=== PATIENT | female | born 1940 | race African-American/Black ===

== ENCOUNTER 2024-05-13 18:05 | Inpatient (IN) | payer OTHER ==
[~2024-05-13] VITALS: Ht 160 cm; Wt 64.4 kg
--- NOTE | 2024-05-13 18:31 | ECG ---
[facility] Test Date: 2024-05-13 Test Time: 18:22:00 Pat Name: SURAJ TRIVEDI Department: ER Room: 0247T Gender: F Reject Opener: ER : 1940 Requested By: MISBAH WHITTAKER Order Number: [id number] Reading MD: Basil Smith Measurements Intervals [place] Rate: 69 P: 91 SC: 193 QRS: 111 QRSD: 94 T: 63 QT: 401 QTc: 430 Interpretive Statements Sinus rhythm Ventricular trigeminy Anteroseptal infarct, age indeterminate Electronically Signed On 05-15-2024 22:10:27 PDT by Basil Smith Please click the below link to view image of tracing.
--- NOTE | 2024-05-13 19:17 | DVH ---
EXAM: CT HEAD WITHOUT CONTRAST HISTORY: syncope COMPARISON: None TECHNIQUE: Axial images were obtained and reformatted in coronal and sagittal planes. All CT scans at this medical facility are performed using dose modulation techniques as appropriate t o a performed exam including the following: Automated exposure control was utilized; adjustment of th e MA and/or KV according to patient size; and use of iterative reconstruction technique. CT Dose: CTDI volume is 52 mGy. Dose-length product is 840 mGy*cm FINDINGS: Supratentorial Region: No evidence for large acute territorial ischemia. No intracranial hemorrhage is noted. Posterior Fossa: No acute abnormality. Brainstem: Unremarkable. Sellar/Suprasellar Region: Unremarkable. Ventricles, Cisterns, Sulci: Age-appropriate. Orbits: Unremarkable. Paranasal Sinuses: Unremarkable. Mastoid Air Cells: Unremarkable. Vasculature: Unremarkable. Bones/Soft Tissues: No acute abnormality. Other: None. IMPRESSION: 1. No acute intracranial process.
[2024-05-13 19:19] LABS: Basophils # (auto) 0 10 ^3/uL (0-0.2); Basophils % (auto) 0.7 % (0.0-2.0); Eosinophils # (auto) 0.2 10 ^3/uL (0-0.8); Eosinophils % (auto) 4.2 % (0.0-7.0); Hematocrit 37.8 % (36.0-46.0); Hemoglobin 12.5 g/dL (12.2-16.2); Lymphocytes # (auto) 1.2 10 ^3/uL (0.4-5.4); Lymphocytes % (auto) 32.6 % (10.0-50.0); Mean Corpuscular Hemoglobin 26.3 pg (28.0-32.0); Mean Corpuscular Volume 79.9 fL (80.0-100.0); Monocytes # (auto) 0.6 10 ^3/uL (0-1.3); Monocytes % (auto) 16.5 % (0.0-12.0); Neutrophils # (auto) 1.8 10 ^3/uL (1.6-8.6); Nucleated Red Blood Cells % 0.1 %; Platelet Count (auto) 318 10^3/uL (140-450); Red Blood Cells 4.73 10^6/uL (4.0-5.20); Red Cell Distribution Width 14.9 % (11.8-14.3); White Blood Cell 3.8 10^3/uL (4.4-10.8)
--- NOTE | 2024-05-13 19:26 | DVH ---
EXAM: XR Chest, 1 View CLINICAL INDICATION: syncope TECHNIQUE: Frontal view of the chest. COMPARISON: None FINDINGS: LUNGS AND PLEURAL SPACES: Unremarkable. No consolidation. No pneumothorax. HEART: Unremarkable. No cardiomegaly. MEDIASTINUM: Unremarkable. Normal mediastinal contour. BONES/JOINTS: Unremarkable. No acute fracture. OTHER FINDINGS: . None. IMPRESSION: No acute cardiopulmonary process.
[2024-05-13 19:28] LABS: Chloride 99 mmol/L (98-107); Potassium 4.5 mmol/L (3.5-5.1)
[2024-05-13 19:29] LABS: Anion Gap 7 (5-15); Carbon Dioxide 29 mmol/L (20-31)
[2024-05-13 19:34] LABS: BUN/Creatinine Ratio 23.2 (10.0-20.0)
[2024-05-13 19:37] LABS: Blood Urea Nitrogen 29 mg/dL (9-23); Calcium 10.6 mg/dL (8.7-10.4); Glucose 107 mg/dL (74-106); Sodium 135 mmol/L (136-145)
--- NOTE | 2024-05-13 20:21 | ED.PDOC ---
History of Present Illness HPI Comments 83 y/o F, with a Hx of irregular heartbeat s/p cardiac surgery and HTN, presents s/p witnessed syncope with head injury, today. Patient is reported to have had a sudden syncopal episode with positive fall and head injury against a wall, while standing next to her in ED hallway, earlier, this evening. At time of assessment, patient comments on standing in the same spot for a while and being somewhat fatigue. Patient admits to having a syncopal episode in the past several years ago but never being told of underlying cause then. She denies any headaches, visions or speech changes, weakness, dizziness, additional injuries, or other associated symptoms or modifiers at this time. 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 History: Other (prolapsed uterus ) All Other Systems: Reviewed and Negative (Comprehensive systems review obtained and negative except for what is stated in the HPI.) Physical Exam General Appearance: No Apparent Distress, Normal HEENT: Normal ENT Inspection, Pharynx Normal, TMs Normal Neck: Full Range of Motion, Non-Tender, Normal, Normal Inspection Respiratory: Chest Non-Tender, Lungs Clear, No Accessory Muscle Use, No Respiratory Distress, Normal Breath Sounds Cardiovascular: No Edema, No JVD, No Murmur, No Gallop, Normal Peripheral Puls es, Regular Rate/Rhythm Breast Exam: Deferred Gastrointestinal: No Organomegaly, Non Tender, No Pulsatile Mass, Normal Bowel Sounds, Soft Genitalia: Deferred Pelvic: Deferred Rectal: Deferred Extremities: No calf tenderness, Normal capillary refill, Normal inspection, Normal range of motion, Non-tender, No pedal edema Musculoskeletal : Apperance: Normal 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 Was a procedure done?: No EKG EKG : Pulse Rate (adult): 69 [place]: Normal Cardiac Rhythm: NSR, PVC's (frequent ) Block: None Hypertrophy: None ST: Normal Differential Dx Considerations may include: dehydrations, electrolyte imbalance, viral syndrome, closed head injury, vasovagal response, arrhythmias, VBI, hypoglycemia, seizure X-Ray, Labs, Meds, VS Vital Signs Date Time Temp Pulse Resp B/P (MAP) Pulse Ox O2 Delivery O2 Flow Rate FiO2 05/13/24 23:24 97.8 69 18 149/60 (89) 95 97.8 05/13/24 20:21 69 05/13/24 18:22 69 05/13/24 18:20 97.5 77 16 168/64 (98) 98 97.5 Lab Test 05/13/24 22:12 05/13/24 19:43 05/13/24 18:46 05/13/24 18:18 Range/Units Troponin I High Sensitivity 8 9 8 </=34 ng/L White Blood Count 3.8 L 4.4-10.8 10^3/uL Red Blood Count 4.73 4.0-5.20 10^6/uL Hemoglobin 12.5 12.2-16.2 g/dL Hematocrit 37.8 36.0-46.0 % Mean Corpuscular Volume 79.9 L 80.0-100.0 fL Mean Corpuscular Hemoglobin 26.3 L 28.0-32.0 pg Mean Corpuscular Hemoglobin Concent 33.0 32.0-36.0 g/dL Red Cell Distribution Width 14.9 H 11.8-14.3 % Platelet Count 318 140-450 10^3/uL Mean Platelet Volume 8.3 6.9-10.8 fL Neutrophils (%) (Auto) 46.0 37.0-80.0 % Lymphocytes (%) (Auto) 32.6 10.0-50.0 % Monocytes (%) (Auto) 16.5 H 0.0-12.0 % Eosinophils (%) (Auto) 4.2 0.0-7.0 % Basophils (%) (Auto) 0.7 0.0-2.0 % Neutrophils # (Auto) 1.8 1.6-8.6 10 ^3/uL Lymphocytes # (Auto) 1.2 0.4-5.4 10 ^3/uL Monocytes # (Auto) 0.6 0-1.3 10 ^3/uL Eosinophils # (Auto) 0.2 0-0.8 10 ^3/uL Basophils # (Auto) 0 0-0.2 10 ^3/uL Nucleated Red Blood Cells 0.1 % Sodium Level 135 L 136-145 mmol/L Potassium Level 4.5 3.5-5.1 mmol/L Chloride Level 99 98-107 mmol/L Carbon Dioxide Level 29 20-31 mmol/L Anion Gap 7 5-15 Blood Urea Nitrogen 29 H 9-23 mg/dL Creatinine 1.25 H 0.550-1.02 mg/dL Glomerular Filtration Rate Calc 42 >90 mL/min BUN/Creatinine Ratio 23.2 H 10.0-20.0 Serum Glucose 107 H 74-106 mg/dL Calcium Level 10.6 H 8.7-10.4 mg/dL Urine Color Yellow Yellow Urine Clarity Clear Clear Urine pH 6.5 5.0-9.0 Urine Specific [place] 1.014 1.001-1.035 Urine Protein Negative Negative Urine Ketones Negative Negative Urine Blood Negative Negative /uL Urine Nitrite Negative Negative Urine Bilirubin Negative Negative Urine Urobilinogen Normal Negative mg/dL Urine Leukocyte Esterase 2+ Negative /uL Urine RBC 3 0 - 4 /hpf Urine Microscopic WBC 4 0-5 /HPF Urine Squamous Epithelial Cells None seen <5 /hpf Urine Bacteria None seen None Seen /hpf Urine Hyaline Casts Few 0 - 2 /lpf Urine Glucose Normal Normal mg/dL Test 05/13/24 18:16 Range/Units POC Glucose 124 H 70-106 mg/dl [place] [address] Ph: [phone] DIAGNOSTIC IMAGING Diagnostic Imaging Report : [id number] Signed PATIENT: SURAJ TRIVEDI ACCT: [id number] UNIT: [id number] : 1940 LOC: ER ROOM / BED: / AGE / SEX: 83 / F ADM STATUS: REG ER SERVICE 1830 ORDERING PHYSICIAN: MISBAH WHITTAKER MD PROCEDURE(s): HWOCT - HEAD WITHOUT CONTRAST REASON: syncope ORDER NUMBER(s): [id number], ACCESSION NUMBER(s): [id number] EXAM: CT HEAD WITHOUT CONTRAST HISTORY: syncope COMPARISON: None TECHNIQUE: Axial images were obtained and reformatted in coronal and sagittal planes. All CT scans at this medical facility are performed using dose modulation techniques as appropriate to a performed exam including the following: Automated exposure control was utilized; adjustment of the MA and/or KV according to patient size; and use of iterative reconstruction technique. CT Dose: CTDI volume is 52 mGy. Dose-length product is 840 mGy*cm FINDINGS: Supratentorial Region: No evidence for large acute territorial ischemia. No intracranial hemorrhage is noted. Posterior Fossa: No acute abnormality. Brainstem: Unremarkable. Sellar/Suprasellar Region: Unremarkable. Ventricles, Cisterns, Sulci: Age-appropriate. Orbits: Unremarkable. Paranasal Sinuses: Unremarkable. Mastoid Air Cells: Unremarkable. Vasculature: Unremarkable. Bones/Soft Tissues: No acute abnormality. Other: None. IMPRESSION: 1. No acute intracranial process. ATED BY: KYMBERLY JAMES MD DICTATED DATE/TIME: 05/13/241914 SIGNED BY: KYMBERLY JAMES MD SIGNED DATE/TIME: 05/13/241914 CC: [place] [address] Ph: [phone] DIAGNOSTIC IMAGING Diagnostic Imaging Report : [id number] Signed PATIENT: SURAJ TRIVEDI ACCT: [id number] UNIT: [id number] : 1940 LOC: ER ROOM / BED: / AGE / SEX: 83 / F ADM STATUS: REG ER SERVICE 29 ORDERING PHYSICIAN: MISBAH WHITTAKER MD PROCEDURE(s): CXRP - CHEST PORTABLE REASON: syncope ORDER NUMBER(s): [id number], ACCESSION NUMBER(s): [id number] EXAM: XR Chest, 1 View CLINICAL INDICATION: syncope TECHNIQUE: Frontal view of the chest. COMPARISON: None FINDINGS: LUNGS AND PLEURAL SPACES: Unremarkable. No consolidation. No pneumothorax. HEART: Unremarkable. No cardiomegaly. MEDIASTINUM: Unremarkable. Normal mediastinal contour. BONES/JOINTS: Unremarkable. No acute fracture. OTHER FINDINGS: . None. IMPRESSION: No acute cardiopulmonary process. ATED BY: MARNIE WISE MD DICTATED DATE/TIME: 05/13/241922 SIGNED BY: MARNIE WISE MD SIGNED DATE/TIME: 05/13/241922 CC: Time of 1ST Reevaluation: 19:00 Reevaluation 1ST: Unchanged Time of 2ND Reevaluation: 20:32 Reevaluation 2ND: Improved Patient Education/Counseling: Diagnosis, Treatment, Prognosis, Need For Follow Up Family Education/Counseling: Diagnosis, Treatment, Prognosis, Need For Follow Up, No Family Present Additional Information Previous medical encounters reviewed: n/a The following tests were ordered, and results were reviewed by me: troponin, BMP, CBC, EKG, CT head w/o contrast, CXR Additional Information was gathered from interviewing the following independent historians: I reviewed and agreed with the following test results read by other providers: CXR I discussed treatment and results with medical personnel and: Patient, pt had a witnessed episode of syncope, without injuries. her EKGs shows multiple PVCs. arrythmias were not captured, otherwise. her locust syncope rule silva her as "not low risk" she will need admission for further evaluation. pt also has an incidental finding of uti i consulted with Dr Yousif at [facility] who will look for a bed at [facility], but since pt's is being admitted, she will decline transfer #[id number] Departure 1 Departure Time of Disposition: 20:37 Impression: Primary Impression: PVC (premature ventricular contraction) Additional Impressions: Syncopal episodes Qualified Codes: I45.9 - Conduction disorder, unspecified UTI (urinary tract infection) Qualified Codes: N30.00 - Acute cystitis without hematuria Disposition: ADMITTED INPATIENT Admit to: Tele Condition: Serious Discharged With: Self, Relative Critical Care Note Critical Care Time?: Yes (55 min-critical care time only) Critical care comment: Due to concerns for patients condition deteriorating, the care required my highest level of attention and readiness to intervene. I assessed the patient, reviewed the medical records, ordered the appropriate tests and treatments, then reassessed for results and responsiveness. I communicated with medical personnel and consultants and formulated a plan of care. Total critical care time excludes any procedures Stability Stability form required: No Heart Score Heart Score: Heart Score Response (Comments) Value History Moderate Suspicious 1 EKG Normal 0 Age >65 2 Risk Factors 1 or 2 risk factors 1 Troponin Normal limit 0 Total 4 I personally scribed for MISBAH WHITTAKER MD ([email or web address]) on 05/13/24 at 20:21. Electronically submitted by Ricardo Rand [email or web address]). MISBAH WHITTAKER MD May 13, 2024 20:21
[2024-05-13 22:25] LABS: Urine Bacteria None Seen /hpf (None Seen)
[2024-05-13 22:34] LABS: Urine Blood Negative /uL (Negative); Urine Clarity Clear (Clear); Urine Color Yellow (Yellow); Urine Hyaline Cast FEW /lpf (0 - 2); Urine Protein, UAD Negative (Negative); Urine Specific Gravity 1.014 (1.001-1.035); Urine Squamous Epithelial Cell None Seen /hpf (<5); Urine Urobilinogen Normal (Negative); Urine WBC 4 /HPF (0-5); Urine pH 6.5 (5.0-9.0)
[2024-05-14] VITALS (11 sets, daily range): BP systolic 113–161; BP diastolic 54–72; PULSE 58–77; RESP 9–18; TEMP 97.7–98; O2SAT 95–98
[2024-05-14] MEDS ORDERED: CEPHALEXIN 250 MG CAP PO ONE
[2024-05-14] MEDS ORDERED: MORPHINE SULFATE INJ 2 MG/ml SYRG IV PRN (01:15)
[2024-05-14] MEDS ORDERED: ONDANSETRON HCL 4 MG/2 ML VIAL IV PRN (01:15)
[2024-05-14] MEDS ORDERED: NITROGLYCERIN 0.4 MG SL TAB SL PRN (01:15)
--- NOTE | 2024-05-14 01:19 | DVHHP2 ---
History of Present Illness Reason for Visit: Syncope History of Present Illness 83-year-old female presents for evaluation of syncopal episode. Patient was waiting the site her who was being worked up before admission when she had a sudden syncopal episode. She reports loss of consciousness. No head trauma. Currently denies dizziness, shortness for breath or chest pain. No other acute symptoms are reported. Past Medical History Hypertension Past Surgical History ? Cardiac surgery Family History Noncontributory Smoke: No ALCOHOL: none Drugs: None Lives: with Family Review of Systems Review of Systems Review of systems are currently negative otherwise addressed in HPI. Allergies: Coded Allergies: Cephalexin (Verified Allergy, Mild, hives, 05/13/24) Medications Current Medications Medications Dose Ordered Sig/Prachi Route Start Time Stop Time Status Last Admin Dose Admin Nitrofurantoin Macrocrystals 100 mg BID PO 05/14/24 10:00 UNV Amlodipine Besylate 5 mg DAILY PO 05/14/24 10:00 UNV Lisinopril 20 mg DAILY PO 05/14/24 10:00 UNV Hydrochlorothiazide 12.5 mg DAILY PO 05/14/24 10:00 UNV Ondansetron HCl 4 mg Q4HP PRN IV 05/14/24 01:15 UNV Enoxaparin Sodium 30 mg DAILY SC 05/14/24 10:00 UNV Acetaminophen 650 mg Q6HP PRN PO 05/14/24 01:15 UNV Morphine Sulfate 2 mg Q30M PRN IV 05/14/24 01:15 UNV Exam Vital Signs Vital Signs Date Time Temp Pulse Resp B/P (MAP) Pulse Ox O2 Delivery O2 Flow Rate FiO2 05/14/24 00:57 98.1 71 11 174/74 (107) 98 98.1 Exam Gen: 83-year-old female in mild distress Skin: Warm, dry, normal color and texture, no rash. HEENT: Normocephalic atraumatic, mucous membranes moist and pink. Neck: Cervical and supraclavicular nodes normal without enlargement, trachea is midline, thyroid gland is normal without masses. Pulmonary: Clear to auscultation and percussion bilaterally. Cardiac: Regular rate and rhythm. No murmur Abdomen: Soft, nontender, nondistended, bowel sounds present all 4 quadrants, no guarding, no rigidity, no organomegaly. Extremities: No cyanosis, clubbing, no edema Neuro: Cranial nerves II through XII grossly intact, normal affect and speech, no focal motor deficits. Labs/Xrays ORDERING PHYSICIAN: MISBAH WHITTAKER MD PROCEDURE(s): CXRP - CHEST PORTABLE REASON: syncope ORDER NUMBER(s): [id number], ACCESSION NUMBER(s): [id number] EXAM: XR Chest, 1 View CLINICAL INDICATION: syncope TECHNIQUE: Frontal view of the chest. COMPARISON: None FINDINGS: LUNGS AND PLEURAL SPACES: Unremarkable. No consolidation. No pneumothorax. HEART: Unremarkable. No cardiomegaly. MEDIASTINUM: Unremarkable. Normal mediastinal contour. BONES/JOINTS: Unremarkable. No acute fracture. OTHER FINDINGS: . None. IMPRESSION: No acute cardiopulmonary process. RING PHYSICIAN: MISBAH WHITTAKER MD PROCEDURE(s): HWOCT - HEAD WITHOUT CONTRAST REASON: syncope ORDER NUMBER(s): [id number], ACCESSION NUMBER(s): [id number] EXAM: CT HEAD WITHOUT CONTRAST HISTORY: syncope COMPARISON: None TECHNIQUE: Axial images were obtained and reformatted in coronal and sagittal planes. All CT scans at this medical facility are performed using dose modulation te chniques as appropriate to a performed exam including the following: Automated exposure control was utilized; adjustment of the MA and/or KV according to patient size; and use of iterative reconstruction technique. CT Dose: CTDI volume is 52 mGy. Dose-length product is 840 mGy*cm FINDINGS: Supratentorial Region: No evidence for large acute territorial ischemia. No intracranial hemorrhage is noted. Posterior Fossa: No acute abnormality. Brainstem: Unremarkable. Sellar/Suprasellar Region: Unremarkable. Ventricles, Cisterns, Sulci: Age-appropriate. Orbits: Unremarkable. Paranasal Sinuses: Unremarkable. Mastoid Air Cells: Unremarkable. Vasculature: Unremarkable. Bones/Soft Tissues: No acute abnormality. Other: None. IMPRESSION: 1. No acute intracranial process. Labs Test 05/13/24 22:12 05/13/24 18:46 05/13/24 18:18 05/13/24 18:16 Range/Units Magnesium Level 2.1 1.6-2.6 mg/dL Troponin I High Sensitivity 8 </=34 ng/L White Blood Count 3.8 L 4.4-10.8 10^3/uL Red Blood Count 4.73 4.0-5.20 10^6/uL Hemoglobin 12.5 12.2-16.2 g/dL Hematocrit 37.8 36.0-46.0 % Mean Corpuscular Volume 79.9 L 80.0-100.0 fL Mean Corpuscular Hemoglobin 26.3 L 28.0-32.0 pg Mean Corpuscular Hemoglobin Concent 33.0 32.0-36.0 g/dL Red Cell Distribution Width 14.9 H 11.8-14.3 % Platelet Count 318 140-450 10^3/uL Mean Platelet Volume 8.3 6.9-10.8 fL Neutrophils (%) (Auto) 46.0 37.0-80.0 % Lymphocytes (%) (Auto) 32.6 10.0-50.0 % Monocytes (%) (Auto) 16.5 H 0.0-12.0 % Eosinophils (%) (Auto) 4.2 0.0-7.0 % Basophils (%) (Auto) 0.7 0.0-2.0 % Neutrophils # (Auto) 1.8 1.6-8.6 10 ^3/uL Lymphocytes # (Auto) 1.2 0.4-5.4 10 ^3/uL Monocytes # (Auto) 0.6 0-1.3 10 ^3/uL Eosinophils # (Auto) 0.2 0-0.8 10 ^3/uL Basophils # (Auto) 0 0-0.2 10 ^3/uL Nucleated Red Blood Cells 0.1 % Sodium Level 135 L 136-145 mmol/L Potassium Level 4.5 3.5-5.1 mmol/L Chloride Level 99 98-107 mmol/L Carbon Dioxide Level 29 20-31 mmol/L Anion Gap 7 5-15 Blood Urea Nitrogen 29 H 9-23 mg/dL Creatinine 1.25 H 0.550-1.02 mg/dL Glomerular Filtration Rate Calc 42 >90 mL/min BUN/Creatinine Ratio 23.2 H 10.0-20.0 Serum Glucose 107 H 74-106 mg/dL Calcium Level 10.6 H 8.7-10.4 mg/dL Urine Color Yellow Yellow Urine Clarity Clear Clear Urine pH 6.5 5.0-9.0 Urine Specific [place] 1.014 1.001-1.035 Urine Protein Negative Negative Urine Ketones Negative Negative Urine Blood Negative Negative /uL Urine Nitrite Negative Negative Urine Bilirubin Negative Negative Urine Urobilinogen Normal Negative mg/dL Urine Leukocyte Esterase 2+ Negative /uL Urine RBC 3 0 - 4 /hpf Urine Microscopic WBC 4 0-5 /HPF Urine Squamous Epithelial Cells None seen <5 /hpf Urine Bacteria None seen None Seen /hpf Urine Hyaline Casts Few 0 - 2 /lpf Urine Glucose Normal Normal mg/dL POC Glucose 124 H 70-106 mg/dl Assessment/Plan Assessment/Plan Assessment Syncope Urinary tract infection Chronic kidney disease Plan Admit the patient to telemetry to the hospitalist Cardiology consultation Echocardiogram/carotid ultrasound pending Resume home medications Continue treatment per orders. Plan discussed with: Patient My Orders Orders - CHUCK ALLISON AGACNP Procedure Category Date Status Time Nitrofurantoin PHA 05/14/24 Logged Capsule (Macrobid) 10:00 Amlodipine Tablet PHA 05/14/24 Logged (Norvasc Tablet) 10:00 Lisinopril Tablet PHA 05/14/24 Logged (Zestril Tablet) 10:00 Hydrochlorothiazide PHA 05/14/24 Logged Tablet (Hydrochlorot 10:00 * Cardiology Consult CONS 05/14/24 Transmitted 01:10 Basic Metabolic Panel LAB 05/15/24 Verified 04:00 Admit ADMIT 05/14/24 Transmitted 01:10 Renal DIET 05/14/24 Transmitted Standard(2gna,3gk,Lopho) Breakfast Ondansetron Hcl PHA 05/14/24 Logged (Zofran) 01:15 Cardiac DIET 05/14/24 Transmitted Diet-2gna,Lofat,Lochol Breakfast Echo 2d Mode Cardiac US 05/14/24 Logged DOP 01:10 Carotid Duplx W Color US 05/14/24 Logged DOP 01:10 Condition: Fair MARK 05/14/24 Transmitted 01:10 Enoxaparin Sodium PHA 05/14/24 Logged (Lovenox) 10:00 Acetaminophen Tablet PHA 05/14/24 Transmitted (Tylenol Tablet) 01:15 Bedrest With Bathroom MARK 05/14/24 Transmitted Privileg 01:10 Nitroglycerin PHA 05/14/24 Transmitted Sublingual (Ntrostat 01:15 Morphine Sulfate PHA 05/14/24 Transmitted Injection 01:15 Stat Ekg For Chest MARK 05/14/24 Transmitted Pain 01:10 Notify Md Of Changes [facility] 05/14/24 Transmitted From Base 01:10 [place] [employer]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
[2024-05-14] MEDS: ACETAMINOPHEN 325 MG TAB PO PRN (02:10)
[2024-05-14] MEDS: NITROFURANTOIN 100 mg CAP PO SCH (03:33)
--- NOTE | 2024-05-14 08:40 | DVH ---
Carotid Duplex Date: 05/14/2024 07:08 AM Clinical History: syncope Comparison: None Technique: Duplex Doppler evaluation of the extracranial carotid and vertebral arteries including color Doppler and spectral/pulsed waveform analysis was performed. Findings: Greater than 50% stenosis involving the left ICA with ICA velocity measuring 131 centimeters/second a nd ICA/CCA ratio measuring 2.9.. Bilateral vertebral artery flow. Moderate atherosclerosis. IMPRESSION: No hemodynamically significant stenosis noted in the right carotid system. Greater than 50% stenosis involving the left ICA. Reference: Radiology 2003; 229:340-346
--- NOTE | 2024-05-14 09:17 | DVHINCON2 ---
Date Seen: May 14, 2024 Referring Physician DELMAR Tenorio Reason for Consultation Syncope History of Present Illness This is a pleasant 83-year-old female who presented to the emergency room with a chief complaint of syncopal event. The patient reports she brought in her to the ER for evaluation and while standing in the ED hallway she experienced a syncopal event for an unknown amount of time. Endorses some d izziness earlier during the day. Denies visual disturbance, headache, chest pain, SOB, or palpitations. Blood glucose level was found at 124 ng/dL, SBP 160s mmHg, and a HR in the 70s bpm. She underwent a 12 lead electrocardiogram revealing a sinus rhythm with ventricular trigeminy and no evidence of ischemia. Serial troponin levels are negative. Significant medical history includes possible history of atrial fibrillation with possible cardiac ablation in 2019 (off AC therapy), osteoporosis, hypertension, GERD, and prolapsed bladder with pessary. Past Medical History Past medical history reviewed. No other significant than mentioned above. Past Surgical History Possible cardiac ablation, 2019 Cataracts BTL Right lumpectomy Family History Family history reviewed. Social History Denies the use of illicit drugs, alcohol, or tobacco use. Allergies: Coded Allergies: Cephalexin (Verified Allergy, Mild, hives, 05/13/24) Home Meds Home medications reviewed. Current Medications Current Medications Medications (Trade) Dose Ordered Sig/Prachi Route PRN Reason Start Time Stop Time Status Last Admin Nitrofurantoin Macrocrystals (Macrobid) 100 mg BID PO 05/14/24 01:30 05/14/24 03:33 Amlodipine Besylate (Norvasc Tablet) 5 mg DAILY PO 05/14/24 10:00 Lisinopril (Zestril Tablet) 20 mg DAILY PO 05/14/24 10:00 Hydrochlorothiazide (hydroCHLOROthiazide TABLET) 12.5 mg DAILY PO 05/14/24 10:00 Ondansetron HCl (Zofran) 4 mg Q4HP PRN IV NAUSEA / VOMITING 05/14/24 01:15 Enoxaparin Sodium (Lovenox) 30 mg DAILY SC 05/14/24 10:00 Acetaminophen (Tylenol Tablet) 650 mg Q6HP PRN PO PAIN SCALE 1-3 OR TEMP>100.4 05/14/24 01:15 05/14/24 02:10 Nitroglycerin (Ntrostat Sublingual) 0.4 mg Q5MINP PRN SL FOR CHEST PAIN 05/14/24 01:15 Morphine Sulfate 2 mg Q30M PRN IV FOR CHEST PAIN 05/14/24 01:15 Review of Systems Constitutional: No symptom reported Ears, Nose, & Throat: No symptom reported Eyes: No symptom reported Neurological: Syncopal event, dizziness Pulmonary/Respiratory: No symptom reported Cardiovascular: No symptom reported Gastrointestinal: No symptom reported Genitourinary: No symptom reported Musculoskeletal: No symptom reported Skin: No symptom reported Psychiatric: No symptom reported Endocrine: No symptom reported Hemotologic/Lymphatic: No symptom reported Vital Signs Vital Signs Date Time Temp Pulse Resp B/P (MAP) Pulse Ox O2 Delivery O2 Flow Rate FiO2 05/14/24 08:15 63 9 97 Room Air* 0 21 05/14/24 08:00 97.9 141/61 (87) 97.9 Physical Exam General Appearance: Cooperative. Well developed. Well nourished. In no acute distress Head Exam: Normal inspection Neck Exam: Normal inspection. Non-tender. Normal alignment Pulmonary/Respiratory: Chest non-tender. Clear bilateral breath sounds Cardiovascular/Chest: Regular rate and rhythm. S1, S2. Sinus rhythm with PVCs. No murmurs. No JVD. Peripheral Pulses: 2+ Radial (R). 2+ Radial (L). 2+ Pedal (R). 2+ Pedal (L) Abdominal Exam: Normal bowel sounds. Soft. Nontender. No hepatospenomegaly. No masses Ankle Exam: Negative ankle edema Lower extremities: Negative lower extremity edema Neuro/Mental Status: A&O x4. Coherent Thoughts/Psych: Normal thought pattern. Appropriate mood and affect. Good judgement and insight Appearance: In no acute distress Skin Exam: Normal inspection. Normal color. Warm. Dry Labs/Diagnostic Data Labs Test 05/13/24 22:12 05/13/24 18:46 05/13/24 18:18 05/13/24 18:16 Range/Units Magnesium Level 2.1 1.6-2.6 mg/dL Troponin I High Sensitivity 8 </=34 ng/L White Blood Count 3.8 L 4.4-10.8 10^3/uL Red Blood Count 4.73 4.0-5.20 10^6/uL Hemoglobin 12.5 12.2-16.2 g/dL Hematocrit 37.8 36.0-46.0 % Mean Corpuscular Volume 79.9 L 80.0-100.0 fL Mean Corpuscular Hemoglobin 26.3 L 28.0-32.0 pg Mean Corpuscular Hemoglobin Concent 33.0 32.0-36.0 g/dL Red Cell Distribution Width 14.9 H 11.8-14.3 % Platelet Count 318 140-450 10^3/uL Mean Platelet Volume 8.3 6.9-10.8 fL Neutrophils (%) (Auto) 46.0 37.0-80.0 % Lymphocytes (%) (Auto) 32.6 10.0-50.0 % Monocytes (%) (Auto) 16.5 H 0.0-12.0 % Eosinophils (%) (Auto) 4.2 0.0-7.0 % Basophils (%) (Auto) 0.7 0.0-2.0 % Neutrophils # (Auto) 1.8 1.6-8.6 10 ^3/uL Lymphocytes # (Auto) 1.2 0.4-5.4 10 ^3/uL Monocytes # (Auto) 0.6 0-1.3 10 ^3/uL Eosinophils # (Auto) 0.2 0-0.8 10 ^3/uL Basophils # (Auto) 0 0-0.2 10 ^3/uL Nucleated Red Blood Cells 0.1 % Sodium Level 135 L 136-145 mmol/L Potassium Level 4.5 3.5-5.1 mmol/L Chloride Level 99 98-107 mmol/L Carbon Dioxide Level 29 20-31 mmol/L Anion Gap 7 5-15 Blood Urea Nitrogen 29 H 9-23 mg/dL Creatinine 1.25 H 0.550-1.02 mg/dL Glomerular Filtration Rate Calc 42 >90 mL/min BUN/Creatinine Ratio 23.2 H 10.0-20.0 Serum Glucose 107 H 74-106 mg/dL Calcium Level 10.6 H 8.7-10.4 mg/dL Urine Color Yellow Yellow Urine Clarity Clear Clear Urine pH 6.5 5.0-9.0 Urine Specific [place] 1.014 1.001-1.035 Urine Protein Negative Negative Urine Ketones Negative Negative Urine Blood Negative Negative /uL Urine Nitrite Negative Negative Urine Bilirubin Negative Negative Urine Urobilinogen Normal Negative mg/dL Urine Leukocyte Esterase 2+ Negative /uL Urine RBC 3 0 - 4 /hpf Urine Microscopic WBC 4 0-5 /HPF Urine Squamous Epithelial Cells None seen <5 /hpf Urine Bacteria None seen None Seen /hpf Urine Hyaline Casts Few 0 - 2 /lpf Urine Glucose Normal Normal mg/dL POC Glucose 124 H 70-106 mg/dl Assessment Syncope and collapse Rule out structural heart disease Possible hx of a-fib with possible cardiac ablation (off AC therapy, 2019) Ventricular trigeminy Left ICA stenosis, moderate degree Hypertension Plan/Recommendation We will continue the following plan/recommendations (Dr. Smith): * Echocardiogram to evaluate cardiac function * Initiate BB and Mg rider given high PVC burden * Bilateral carotid artery duplex * Left ICA stenosis greater than 50% * Orthostatic vital signs * Monitor ECG changes closely * Outpatient event monitor if necessary Thank you for allowing us to participate in this patient's care. Please call if you have any questions or concerns. This medical document was created using an electronic medical record system with voice recognition software and computerized dictation system. Although this document has been carefully reviewed, there might still be some phonetic and typographical errors. Occasional wrong-word or ``sound-alike substitutions may have occurred due to the inherent limitations of voice recognition software. These areas are purely typographical due to imperfections of the software programs and do not reflect any compromise in the patient's medical care. Please read the chart carefully and recognize, using context, where these substitutions have occurred. Plan discussed with: Patient, Other NYHA 2 Physical activity limitations: NA Date of Service: May 14, 2024 Billing Provider: ELIU COLEMAN Cardiology Common Codes: [id number] INP/OBS CARE (High) ELIU COLEMAN May 14, 2024 09:16
[2024-05-14] MEDS ORDERED: amLODIPine BESYLATE 5 MG TAB PO SCH (10:00)
[2024-05-14] MEDS ORDERED: RISE1TAB8 PO (10:10)
[2024-05-14] MEDS ORDERED: PANT40TA2 PO (10:10)
[2024-05-14] MEDS ORDERED: AMLO1TAB22 PO (10:10)
[2024-05-14] MEDS ORDERED: LISI-285 PO (10:10)
[2024-05-14] MEDS: LISINOPRIL 20 MG TAB PO SCH (10:20)
[2024-05-14] MEDS: ENOXAPARIN SOD 30 MG/0.3 ML SYRINGE SC SCH (10:21)
[2024-05-14] MEDS: hydroCHLOROthiazide 25 MG TAB PO SCH (10:21)
[2024-05-14] MEDS: METOPROLOL TARTRATE 25 MG TAB PO SCH (10:22)
[2024-05-14] MEDS: MAGNESIUM SULFATE 1GM/100ML 100 ML IV ONE (10:26)
--- NOTE | 2024-05-14 14:35 | DVHPN2 ---
Progress Note Date Seen: May 14, 2024 Medical Necessity Reason Pt with a Central, PICC or Fol: No Subjective Patient reports: No new complaints Review of Systems: HEENT:Normal, CVS:Normal, RESPIRATORY:Normal, GI:Normal, :Normal, MSK:Normal, NEURO:Normal Objective vital signs Vital Sign Date Time Temp Pulse Resp B/P (MAP) Pulse Ox O2 Delivery O2 Flow Rate FiO2 05/14/24 12:42 67 158/72 (100) 05/14/24 12:21 97.9 17 97 97.9 05/14/24 09:28 Room Air* 0 21 medications Current Medications Medications Dose Ordered Sig/Prachi Route Start Time Stop Time Status Last Admin Dose Admin Nitrofurantoin Macrocrystals 100 mg BID PO 05/14/24 01:30 05/14/24 10:21 100 MG Lisinopril 20 mg DAILY PO 05/14/24 10:00 05/14/24 10:20 20 MG Hydrochlorothiazide 12.5 mg DAILY PO 05/14/24 10:00 05/14/24 10:21 12.5 MG Ondansetron HCl 4 mg Q4HP PRN IV 05/14/24 01:15 Enoxaparin Sodium 30 mg DAILY SC 05/14/24 10:00 05/14/24 10:21 30 MG Acetaminophen 650 mg Q6HP PRN PO 05/14/24 01:15 05/14/24 02:10 650 MG Nitroglycerin 0.4 mg Q5MINP PRN SL 05/14/24 01:15 Morphine Sulfate 2 mg Q30M PRN IV 05/14/24 01:15 Metoprolol Tartrate 12.5 mg BID PO 05/14/24 10:00 05/14/24 10:22 12.5 MG Examination: GENERAL:Normal, HEENT:Normal, NECK:Normal, LUNGS:Normal, CVS:Normal, ABDOMEN:Normal, MSK:Normal, SKIN:Normal, NEURO:Normal, :Normal laboratory and microbiology Laboratory Tests 05/13/24 18:46 Test 05/13/24 18:46 Range/Units Serum Glucose 107 H 74-106 mg/dL Problem List/Assessment/Plan Problem List/Assessment/Plan #1 syncopy/?arrhythmia/trigeminy: cont meds, echo #2 h/o a fib #3 htn #4 right ica stenosis #5 gerd advance care planning- full code- time spent 19 mins Plan discussed with: Patient Date of Service: May 14, 2024 Billing Provider: CHUCK JUAREZ MD Common Visit Codes: [id number] INP/OBS CARE(HIGH) Secondary Visit Codes: [id number] CARE PLAN 30 MINUTES CHUCK JUAREZ MD May 14, 2024 14:35
[2024-05-15 05:00] VITALS: BP 135/70; PULSE 58; RESP 17; TEMP 98; O2SAT 96
[2024-05-15 06:39] LABS: Chloride 101 mmol/L (98-107); Potassium 4.3 mmol/L (3.5-5.1); Sodium 136 mmol/L (136-145)
[2024-05-15 06:40] LABS: Anion Gap 5 (5-15); Carbon Dioxide 30 mmol/L (20-31)
[2024-05-15 06:41] LABS: Calcium 9.4 mg/dL (8.7-10.4)
[2024-05-15 06:45] LABS: Glucose 93 mg/dL (74-106)
[2024-05-15 06:46] LABS: BUN/Creatinine Ratio 23.1 (10.0-20.0); Blood Urea Nitrogen 21 mg/dL (9-23); Magnesium 2.1 mg/dL (1.6-2.6)
--- NOTE | 2024-05-15 07:55 | DVHSR ---
APPROVED REPORT EXAM: Two-dimensional and M-mode echocardiogram with Doppler and color Doppler. Blood Pressure: 147/57 mmHg INDICATION Syncope RISK FACTORS Height: 5'3", Weight: 147 DIMENSIONS LVDd4.2 (3.8-5.7cm)LA (2D)4.6 (1.9-4.0cm)Aortic Root2.6 (2.0-3.7cm) LVDs2.1 (2.5-4.0cm)LA (MM) (1.9-4.0cm)Aortic Cusp Exc1.4 (1.5-2.0cm) EF (%) 80.0 (55-70%)Rt. Atrium4.5 (1.9-4.0cm)Asc. Aorta cm IVSd1.0 (0.7-1.1cm)RV (D)3.7 (1.8-2.4cm) PWd0.6 (0.7-1.1cm) Mitral Valve MitralMitral Stenosis E wave0.93m/sMV Mean GR.mmHg A wave0.68m/sMV Peak GR.mmHg E/A ratio1.42D MVAcm2 DECEL [id number] 1/2 Tim[place] Aortic Valve Aortic ValveAortic Stenosis V10.90m/Yoon Mean GR.5mmHg V21.47m/Yoon Peak GR.9mmHg LVOT Diameter1.9 (1.8-2.4cm)Doppler AVA1.74cm2 Pulmonic Valve V20.84m/s Tricuspid Valve TR Velocity2.31m/s [id number] Conclusion Sinus rhythm. Biatrial enlargement. Mild dilation of the sinuses of Valsalva. Valves are structurally normal. EF is 55-60% with normal right ventricular function. Mild TR. No pericardial effusion masses or vegetations.
[2024-05-15 08:00] VITALS: PULSE 58; PULSE 59; RESP 17; O2SAT 98
[2024-05-15 09:00] VITALS: BP 133/72; PULSE 58; RESP 17; TEMP 97.8; O2SAT 98
--- NOTE | 2024-05-15 09:59 | DVHPN2 ---
Consult Progress Note Date Seen: May 15, 2024 Subjective Review of Systems: CVS:Normal, RESPIRATORY:Normal, NEURO:Normal Other Systems: Denies any cardiac symptoms Objective vital signs Vital Sign Date Time Temp Pulse Resp B/P (MAP) Pulse Ox O2 Delivery O2 Flow Rate FiO2 05/15/24 09:00 97.8 58 17 133/72 (92) 98 97.8 05/14/24 20:00 Room Air* 0 21 Total Intake and Output 05/14/24 05/14/24 05/15/24 15:00 23:00 07:00 Intake Total 560 ml 740 ml Balance 560 ml 740 ml medications Current Medications Medications Dose Ordered Sig/Prachi Route Start Time Stop Time Status Last Admin Dose Admin Nitrofurantoin Macrocrystals 100 mg BID PO 05/14/24 01:30 05/14/24 21:23 100 MG Lisinopril 20 mg DAILY PO 05/14/24 10:00 05/14/24 10:20 20 MG Hydrochlorothiazide 12.5 mg DAILY PO 05/14/24 10:00 05/14/24 10:21 12.5 MG Ondansetron HCl 4 mg Q4HP PRN IV 05/14/24 01:15 Acetaminophen 650 mg Q6HP PRN PO 05/14/24 01:15 05/14/24 02:10 650 MG Nitroglycerin 0.4 mg Q5MINP PRN SL 05/14/24 01:15 Morphine Sulfate 2 mg Q30M PRN IV 05/14/24 01:15 Metoprolol Tartrate 12.5 mg BID PO 05/14/24 10:00 05/14/24 21:22 12.5 MG Examination: LUNGS:Normal, CVS:Normal (monitor worker reviewed, PVC burden improved. Seldom PVCs), NEURO:Normal laboratory and microbiology Laboratory Tests 05/15/24 06:01 05/13/24 18:46 Test 05/15/24 06:01 Range/Units Serum Glucose 93 74-106 mg/dL Problem List/Assessment/Plan Problem List/Assessment/Plan Syncope and collapse Possible hx of a-fib with possible hx of cardiac ablation (off AC therapy, 2019) Ventricular trigeminy Left ICA stenosis, moderate degree Hypertension Plan/Recommendation (Dr. Smith) * Echocardiogram revealed LVEF 55-60% with ANGELLA * Continue BB given high PVC burden. Improved * Bilateral carotid artery duplex * Left ICA stenosis greater than 50% * Orthostatic vital signs, negative (see RN note on 05/14/24) * Outpatient event monitor if necessary There is no further cardiac work-up indicated at this time. Kindly call if in need to re-consult. Thank you for allowing us to participate in this patient's care. This medical document was created using an electronic medical record system with voice recognition software and computerized dictation system. Although this document has been carefully reviewed, there might still be some phonetic and typographical errors. Occasional wrong-word or ``sound-alike substitutions may have occurred due to the inherent limitations of voice recognition software. These areas are purely typographical due to imperfections of the software programs and do not reflect any compromise in the patient's medical care. Please read the chart carefully and recognize, using context, where these substitutions have occurred. Plan discussed with: Patient, Other Date of Service: May 15, 2024 Billing Provider: ELIU COLEMAN Cardiology Common Codes: [id number] INP/OBS CARE(Mod) ELIU COLEMAN May 15, 2024 09:59
[2024-05-15] MEDS: ASPirin 81 mg TAB PO ONE (11:01)
[2024-05-15 12:40] VITALS: BP 154/67; PULSE 61; RESP 19; TEMP 97.9; O2SAT 97
[2024-05-15] MEDS ORDERED: ASPI1TAB20 PO (14:27)
[2024-05-15 15:14] VITALS: BP 136/56; PULSE 58; RESP 18; TEMP 97.9
[2024-05-15 15:16] VITALS: BP 136/56; PULSE 58; RESP 18; TEMP 97.9; O2SAT 98
--- NOTE | 2024-05-15 16:44 | DVHDS2 ---
Discharge Summary Date of Admission May 14, 2024 at 01:10 Date of Discharge: May 15, 2024 Labs/Diagnostic Data: Laboratory Results Test 05/15/24 06:01 05/14/24 09:51 05/13/24 22:12 05/13/24 18:46 Sodium Level 136 mmol/L (136-145) Potassium Level 4.3 mmol/L (3.5-5.1) Chloride Level 101 mmol/L (98-107) Carbon Dioxide Level 30 mmol/L (20-31) Anion Gap 5 (5-15) Blood Urea Nitrogen 21 mg/dL (9-23) Creatinine 0.91 mg/dL (0.550-1.02) Glomerular Filtration Rate Calc 62 mL/min (>90) BUN/Creatinine Ratio 23.1 (10.0-20.0) Serum Glucose 93 mg/dL (74-106) Calcium Level 9.4 mg/dL (8.7-10.4) Magnesium Level 2.1 mg/dL (1.6-2.6) Hemoglobin A1c 5.5 % A1C (<5.7) Thyroid Stimulating Hormone (TSH) 1.77 uIU/mL (0.55-4.78) Troponin I High Sensitivity 8 ng/L (</=34) White Blood Count 3.8 10^3/uL (4.4-10.8) Red Blood Count 4.73 10^6/uL (4.0-5.20) Hemoglobin 12.5 g/dL (12.2-16.2) Hematocrit 37.8 % (36.0-46.0) Mean Corpuscular Volume 79.9 fL (80.0-100.0) Mean Corpuscular Hemoglobin 26.3 pg (28.0-32.0) Mean Corpuscular Hemoglobin Concent 33.0 g/dL (32.0-36.0) Red Cell Distribution Width 14.9 % (11.8-14.3) Platelet Count 318 10^3/uL (140-450) Mean Platelet Volume 8.3 fL (6.9-10.8) Neutrophils (%) (Auto) 46.0 % (37.0-80.0) Lymphocytes (%) (Auto) 32.6 % (10.0-50.0) Monocytes (%) (Auto) 16.5 % (0.0-12.0) Eosinophils (%) (Auto) 4.2 % (0.0-7.0) Basophils (%) (Auto) 0.7 % (0.0-2.0) Neutrophils # (Auto) 1.8 10 ^3/uL (1.6-8.6) Lymphocytes # (Auto) 1.2 10 ^3/uL (0.4-5.4) Monocytes # (Auto) 0.6 10 ^3/uL (0-1.3) Eosinophils # (Auto) 0.2 10 ^3/uL (0-0.8) Basophils # (Auto) 0 10 ^3/uL (0-0.2) Nucleated Red Blood Cells 0.1 % Test 05/13/24 18:18 05/13/24 18:16 Urine Color Yellow (Yellow) Urine Clarity Clear (Clear) Urine pH 6.5 (5.0-9.0) Urine Specific [place] 1.014 (1.001-1.035) Urine Protein Negative (Negative) Urine Ketones Negative (Negative) Urine Blood Negative /uL (Negative) Urine Nitrite Negative (Negative) Urine Bilirubin Negative (Negative) Urine Urobilinogen Normal mg/dL (Negative) Urine Leukocyte Esterase 2+ /uL (Negative) Urine RBC 3 /hpf (0 - 4) Urine Microscopic WBC 4 /HPF (0-5) Urine Squamous Epithelial Cells None seen /hpf (<5) Urine Bacteria None seen /hpf (None Seen) Urine Hyaline Casts Few /lpf (0 - 2) Urine Glucose Normal mg/dL (Normal) POC Glucose 124 mg/dl (70-106) Other Laboratory Tests 05/15/24 06:01 05/13/24 18:46 Brief Hx & Hospital Course: Final diagnoses: Syncope and collapse, most likely vasovagal Possible hx of a-fib with possible hx of cardiac ablation (off AC therapy, 2019) Ventricular trigeminy Left ICA stenosis, moderate degree Hypertension The patient's cardiology workup was normal with a normal ejection fraction on the echocardiogram Carotid Doppler showed left internal carotid artery stenosis greater than 50% Normal orthostatic vital signs The patient is feeling better now Her syncope is probably vasovagal Continue the home medications Add aspirin 81 mg daily Follow up with the primary care physician as soon as possible Condition at Discharge: Stable Final Diagnosis/Problems List Syncope and collapse Possible hx of a-fib with possible hx of cardiac ablation (off AC therapy2019) Ventricular trigeminy Left ICA stenosis, moderate degree Hypertension Discharge Disposition: Home SNF Discharge Will this Physician continue t: No Discharge Instruct/Medications Diet: Cardiac 2g Na,low cholest Activity: No Restrictions, As Tolerated Follow Up/Referral: PCP KAYLA Medications: Aspirin 81 mg qd Resume home meds Discharge Statement: "Patient was advised to return to the ER or call 911 if any headaches, dizziness, shortness of breath, chest pain, abdominal pain, bleeding, fevers, or worsening of medical condition. Patient was counseled about treatment plan, medications, possible side effects, patientverbalized understanding. All questions were answered to the best of my ability. This discharge took greater then 30 minutes in planning, reviewing documentation, counseling the patient, and discussing with other team members." ASSESSMENT ASSESSMENT Assessment Syncope and collapse Possible hx of a-fib with possible hx of cardiac ablation (off AC therapy2019) Ventricular trigeminy Left ICA stenosis, moderate degree Hypertension Date of Service: May 15, 2024 Billing Provider: CASEY RAO MD Common Visit Codes: [id number]/[id number] DISCH DAY >30min CASEY RAO MD May 15, 2024 16:44
[2024-05-16] MEDS ORDERED: ASPirin 81 mg TAB PO SCH (10:00)
== END 2024-05-15 16:15 | disposition home or self-care (01) | DRG 68 ==
LOC: ER 18:05 → OVERFLOW 05-14 01:10 → TELE-EAST 05-14 09:23
PROVIDERS: ADMIT Internal Medicine Geriatric Medicine; ATTEND Internal Medicine Geriatric Medicine
DX: I65.22 Occlusion and stenosis of left carotid artery (principal); N39.0 Urinary tract infection, site not specified; R55 Syncope and collapse; N18.9 Chronic kidney disease, unspecified; K21.9 Gastro-esophageal reflux disease without esophagitis; R00.8 Other abnormalities of heart beat; I12.9 Hypertensive chronic kidney disease with stage 1 through stage 4 chronic kidney disease, or unspecified chronic kidney disease; I48.91 Unspecified atrial fibrillation; I49.3 Ventricular premature depolarization; S09.8XXA Other specified injuries of head, initial encounter; M81.0 Age-related osteoporosis without current pathological fracture; Z79.899 Other long term (current) drug therapy; Z88.1 Allergy status to other antibiotic agents; W18.39XA Other fall on same level, initial encounter; Y93.89 Activity, other specified; Y92.89 Other specified places as the place of occurrence of the external cause; Y99.8 Other external cause status
CPT/HCPCS: 36415; 70450; 71045; 80048; 81001; 82962; 83036; 83735; 84443; 84484; 85025; 93005; 93306; 93886; 97110; 97116; 97163; 97530; 99291; G0378